=== PATIENT | female | born 1940 | race Caucasian/White ===

== ENCOUNTER 2018-01-05 11:38 | Emergency (ER) | payer OTHER ==
[~2018-01-05] VITALS: Ht 157.5 cm; Wt 61.7 kg
[2018-01-05 11:42] VITALS: BP 146/72
--- NOTE | 2018-01-05 11:52 | NUR ---
PT AMBULATED WITH ASSISTANCE TO ER BED 07
--- NOTE | 2018-01-05 11:54 | NUR ---
PT. CAME INTO THE ED DUE TO RLL PAIN X 1 MONTH. PT. STATES " IT STARTED A MONTH AGO I WENT OT MY DOCTOR HE GAVE ME ANTIBIOTICS BUT IT STILL HURTS". 7/10 BURNING PAIN THAT IS NON RADIATING AND ON THE RLL X 1 MONTH. PT. DENIES FEVER, DENIES N/V/D. PEDAL PULSE PRESENT 2+. PT. STATES " MY TOES FEEL NUMB". REDNESS TO RLL NOTED, NO SWELLING. DAUGHTER AT BEDSIDE. ER MD NOTIFIED. SAFETY PRECAUTIONS IMPLEMENTED. WILL CONTINUE TO MONITOR.
--- NOTE | 2018-01-05 12:20 | NUR ---
XRAY AT BEDSIDE AT THIS TIME
--- NOTE | 2018-01-05 12:22 | NUR ---
ULTRASOUND AT BEDSIDE AT THIS TIME.
[2018-01-05 12:52] LABS: ANION GAP 9.5 (8-16); CARBON DIOXIDE 29.5 mmol/L (21-32); CHLORIDE 103 mmol/L (98-107); GLUCOSE 84 mg/dL (74-106); SODIUM SERUM 138 mmol/L (136-145); UREA NITROGEN, BLOOD 17 mg/dL (7-18)
--- NOTE | 2018-01-05 13:30 | NUR ---
PT. RESTING COMFORTABLY IN BED, RR EVEN AND UNLABORED, BED IN LOWEST POSITION. WILL CONTINUE TO MONITOR.
[2018-01-05] MEDS ORDERED: ACETAMINOPHEN EXTRA STRENGTH 500 MG TAB PO ONE (13:40)
[2018-01-05 14:33] VITALS: BP 168/68
--- NOTE | 2018-01-05 14:33 | NUR ---
Patient discharged with v/s stable. Written and verbal after care instructions given and explained. Patient alert, oriented and verbalized understanding of instructions. Ambulatory with steady gait. All questions addressed prior to discharge. ID band removed. Patient advised to follow up with PMD. Rx of ACETAMINOPHEN 500MG given. Patient educated on indication of medication including possible reaction and side effects. Opportunity to ask questions provided and answered.
== END 2018-01-05 14:33 | disposition home or self-care (01) ==
LOC: MED 11:38
DX: I73.9 Peripheral vascular disease, unspecified (principal); I10 Essential (primary) hypertension; E03.9 Hypothyroidism, unspecified; Z85.42 Personal history of malignant neoplasm of other parts of uterus
CPT/HCPCS: 36415; 73620; 80048; 93925; 93971; 99285; Q0092